=== PATIENT | female | born 1970 | race Caucasian/White ===

== ENCOUNTER → 2017-01-13 | Outpatient (CLI) | payer SELFPAY ==
[~2017-01-13] MED LIST: SYNTHROID 0.0.075 MG PO; SYNTHROID 0.00.05 MG PO; VITAMIN D32000 UNIT PO
--- NOTE | 2017-01-16 08:43 | RADIOLOGY REPORT PS360 ---
DIG MAMM-SCREEN KELLEE W/CAD CAD Screening ORDERING PHYSICIAN : Pipo England MD PATIENT AGE: 46 years GENDER: Female COMPARISON: Previous mammograms: December 2012. March 2014. September 2015 INDICATION: Routine screening no hormones no new complaints previous excisional biopsy benign at the left breast TECHNIQUE: Standard CC and MLO images were obtained. R2 CAD reviewed. FINDINGS: Breast are of moderate density bilaterally with no significant new findings. No dominant mass nor suspicious calcifications either breast. . No architectural distortion. Only slight decreased sensitivity in breast of this moderate density. Follow-up in one year recommended IMPRESSION: Stable mammogram No significant new findingsNo significant interval change. Moderately dense breast BI-RADS CATEGORY: 1_Negative RECOMMENDED FOLLOWUP: 12M 12 MONTH FOLLOW-UP (A letter has been sent to the patient regarding results of the study.)
== END ==
LOC: RAD 15:45
DX: Z12.31 Encounter for screening mammogram for malignant neoplasm of breast (principal)
CPT/HCPCS: G0202